=== PATIENT | female | born 1940 ===

== ENCOUNTER 2024-08-31 09:25 | Inpatient (IN) | payer OTHER ==
[2024-08-31] VITALS (7 sets, daily range): BP systolic 83–132; BP diastolic 59–90; O2SAT 97–100
[~2024-08-31] VITALS: Ht 160 cm; Wt 56.7 kg
[2024-08-31] MEDS ORDERED: PANTOPRAZOLE SO40 MG PO (10:16)
[2024-08-31] MEDS ORDERED: METOPROLOL SUCC50 MG PO (10:16)
[2024-08-31] MEDS ORDERED: ATORVASTATIN CA40 MG PO (10:16)
[2024-08-31] MEDS ORDERED: ELIQUIS2.5 MG PO (10:16)
[2024-08-31] MEDS ORDERED: FUROSEMIDE20 MG PO (10:16)
[2024-08-31] MEDS ORDERED: ST. JOSEPH ASPI81 M2 PO (10:16)
[2024-08-31 11:31] LABS: HEMATOCRIT 31.9 % (36.0-45.00); MEAN CELL VOLUME 86.2 fL (80.00-100.00); MEAN CORPUSCULAR HGB CONC 31.3 g/dl (32.0-36.0); PLATELET COUNT 333 K/uL (150-450)
[2024-08-31 11:36] LABS: RED CELL DISTRIBUTION WIDTH 17.3 % (11.5-14.5)
[2024-08-31 11:38] LABS: COVID-19 AG NEGATIVE (NEGATIVE); INFLUENZA A AG NEGATIVE (NEGATIVE); PH,URINE 5.5 (5.0-8.0); URINE APPEARANCE Clear; URINE BILIRRUBIN Negative (NEGATIVE); URINE BLOOD Moderate; URINE COLOR Yellow; URINE GLUCOSE Negative (NEGATIVE); URINE KETONE Negative (NEGATIVE); URINE LEUKOCYTE Trace; URINE NITRATE Negative; URINE PROTEIN 30 (NEGATIVE); URINE UROBILINOGEN 0.2 E.U./dl
--- NOTE | 2024-08-31 11:42 | NUR ---
SE RECIBE PACIENTE ALERTA Y ORIENTADA EN PERSONA Y LUGAR EN AMBULANCIA EN COPANIA DE HIJA QUIEN REFIERE PACIENTE PRESENTA DIFICULTAD RESPIRATORIA E HIPOTENSION. SE MIDEN S/V, SE REALIZA EKG EL CUAL ES PRESENTADO A DR PARK QUIEN REFIERE COLOCAR A PACIENTE EN UNIDAD DE CRITICO. SE CONECTA PACIENTE A MONITOR CARDIACO Y OXIMETRIA DE PUL[place]. SE COLOCA CANULA NASAL A 3 LT/MIN. SE NOTIFICAN ABGS. SE COLECTAN MUESTRAS DE LABORATORIO Y SE CANALIZA A PACIENTE BAJO MEDIDAS ASEPTICAS. SE ADMINISTRAN IVF'S CARA ORDEN MEDICA. SE NOTIFICA X-RAY. SE INSERTA SONDA URINARIA BAJO MEDIDAS ESTERILES, SE CORROBORA PATENTICIDAD Y SE COLOCA A GRAVEDAD. SE MANTIENE PACIENTE BAJO OBSERVACION POR CAMBIOS.
[2024-08-31 11:45] LABS: URINE CAST 3.68 uL (0.0-1.40); URINE EPITHELIAL CELLS 12.6 uL (0.0-38.8); URINE RBC 251.8 uL (0.0-20.8); URINE WBC 26.7 uL (0.0-23.2)
[2024-08-31 12:00] LABS: URINE BACTERIA 2.4 uL (0.0-1933); URINE CRYSTALS FEW /HPF
[2024-08-31] MEDS ORDERED: FUROsemide 40 MG/4 ML VIAL IV ONE (12:00)
[2024-08-31] MEDS ORDERED: NOREPINEPHRINE BITARTRATE 1 MG/ML AMPUL IV ONE (12:04)
[2024-08-31 12:06] LABS: ABG PH 7.395 (7.35-7.45); ABG PO2 82.8 mmHg (80-100); ABG pCO2 47.2 mmHg (35-45); BASE EXCESS 2.6 mmol/l; BICARBONATE 28.3 mmol/l (23-25); SaO2 96.1 %; Tco2 29.7 mmol/l
[2024-08-31] MEDS ORDERED: NOREPINEPHRINE BITARTRATE 4 MG in DEXTROSE 5 % IN WATER 250 ML IV SCH (12:15)
[2024-08-31] MEDS ORDERED: CEFTRIAXONE SODIUM 1,000 MG VIAL IV ONE (12:30)
[2024-08-31] MEDS ORDERED: CEFTRIAXONE SODIUM 1,000 MG VIAL ONE (12:38)
[2024-08-31] MEDS ORDERED: FUROsemide 40 MG/4 ML VIAL ONE (12:38)
[2024-08-31 12:46] LABS: INR 2.36; PARTIAL THROMBOPLASTIN TIME 36.2 SECONDS (22.0-34.0)
[2024-08-31 12:51] LABS: PROTHROMBIN TIME 24.1 SECONDS (9.0-11.5)
[2024-08-31 12:52] LABS: ALBUMIN 2.8 gm/dL (3.4-5.0); BILIRUBIN TOTAL 1.69 mg/dL (0.3-1.2); CALCIUM 9.2 mg/dL (8.5-10.1); CREATININE SERUM 1.81 mg/dL (0.55-1.02); GFR 26.57; GLOBULINA 3.9 G/DL (2.4-3.5); POTASSIUM 4.03 mEq/L (3.5-5.1); TOTAL PROTEIN 6.7 gm/dL (6.4-8.2)
[2024-08-31 13:05] LABS: allen test SATISFACTORY
[2024-08-31 13:06] LABS: mode NASAL CANNULA; o2 32 %; puncture site RADIAL LEFT
[2024-08-31] MEDS ORDERED: CEFTRIAXONE SODIUM 2,000 MG in DEXTROSE 5 % IN WATER 100 ML IV SCH (13:19)
[2024-08-31] MEDS ORDERED: DEXTROSE 5 % IN WATER 1,000 ML IV SCH (13:30)
[2024-08-31 13:59] LABS: C-REACTIVE PROTEIN 6.7 MG/DL (0.00-0.29); CHOL HDL RATIO 2.6 (0-5.0)
[2024-08-31] MEDS ORDERED: DEXTROSE 50 % IN WATER 0.5 G/ML VIAL IV ONE (16:04)
[2024-08-31] MEDS ORDERED: DEXTROSE 50 % IN WATER 0.5 G/ML VIAL IV STA (16:28)
[2024-08-31] MEDS ORDERED: FUROsemide 40 MG/4 ML VIAL IV SCH (17:00)
[2024-08-31] MEDS ORDERED: AMINO ACIDS 4.25 %/DEXTROSE 5% 1,000 ML PERIFERAL SCH (17:00)
[2024-08-31] MEDS ORDERED: ENOXAPARIN SODIUM 60 MG/0.6 ML SYRINGE SUBCUTANEO SCH ×2 (21:00)
[2024-08-31] MEDS ORDERED: PANTOPRAZOLE SODIUM 40 MG/VIAL VIAL IV SCH (21:00)
[2024-08-31] MEDS ORDERED: MEROPENEM 500 MG/VIAL VIAL IV SCH (21:19)
[2024-08-31] MEDS ORDERED: ATROPINE SULFATE 0.1 MG/ML DISP.SYRIN IV PRN (22:45)
[2024-09-01] VITALS (22 sets, daily range): BP systolic 88–138; BP diastolic 45–81; O2SAT 91–100
[2024-09-01] MEDS ORDERED: DOPamine HCL 400MG/D5w 250ML PLAST..BAG IV ONE (00:46)
[2024-09-01] MEDS ORDERED: DOPamine HCL IN DEXTROSE 5 % 250 ML IV SCH (01:15)
[2024-09-01 06:19] LABS: HEMATOCRIT 31.3 % (36.0-45.00); HEMOGLOBIN 9.7 g/dL (12.0-15.00); MEAN CELL VOLUME 86.6 fL (80.00-100.00); MEAN CORPUSCULAR HGB CONC 31.2 g/dl (32.0-36.0); PLATELET COUNT 366 K/uL (150-450); RED BLOOD COUNT 3.61 M/uL (4.00-6.00)
[2024-09-01 07:36] LABS: CHOL HDL RATIO 2.4 (0-5.0)
[2024-09-01 07:40] LABS: ALBUMIN 2.3 gm/dL (3.4-5.0); BILIRUBIN TOTAL 0.77 mg/dL (0.3-1.2); CALCIUM 8.5 mg/dL (8.5-10.1); CREATININE SERUM 1.85 mg/dL (0.55-1.02); GFR 25.91; PHOSPHOROUS 4.2 mg/dL (2.5-4.9); POTASSIUM 3.67 mEq/L (3.5-5.1); TOTAL PROTEIN 5.3 gm/dL (6.4-8.2)
[2024-09-01 07:58] LABS: MAGNESIUM 1.3 mg/dL (1.8-2.4)
[2024-09-01] MEDS ORDERED: 0.9 % SODIUM CHLORIDE 1,000 ML IV SCH (09:00)
[2024-09-01] MEDS ORDERED: MAGNESIUM SULFATE IN WATER 4 GM/100 ML PIGGYBACK IV NR (09:30)
[2024-09-01] MEDS ORDERED: CHLORHEXIDINE GLUCONATE 120 ML BOTTLE TOP ONE (10:46)
[2024-09-01 13:08] LABS: BASE EXCESS 1.4 mmol/l; BICARBONATE 34.1 mmol/l (23-25); SaO2 99.3 %; Tco2 37.2 mmol/l
[2024-09-01 13:56] LABS: INR 1.78; PARTIAL THROMBOPLASTIN TIME 30.8 SECONDS (22.0-34.0)
[2024-09-01 13:58] LABS: PROTHROMBIN TIME 18.6 SECONDS (9.0-11.5)
[2024-09-01 14:43] LABS: ABG PO2 202.9 mmHg (80-100)
[2024-09-01 14:44] LABS: ABG PH 7.142 (7.35-7.45); allen test SATISFACTORY; mode NON REBREATHING MASK; o2 100 %; puncture site RADIAL RIGHT
[2024-09-01 17:30] LABS: ABG PH 7.264 (7.35-7.45); ABG PO2 133.6 mmHg (80-100); BASE EXCESS 2.5 mmol/l; BICARBONATE 31.9 mmol/l (23-25); SaO2 98.5 %; Tco2 34.1 mmol/l
[2024-09-01 17:32] LABS: ABG pCO2 71.9 mmHg (35-45)
[2024-09-01 17:33] LABS: allen test NO SATISFACTORY; mode BPAP; o2 60 %; puncture site RADIAL RIGHT
[2024-09-01 19:30] LABS: ABG PH 7.226 (7.35-7.45); ABG PO2 115.6 mmHg (80-100); BASE EXCESS 2.1 mmol/l; BICARBONATE 32.6 mmol/l (23-25); SaO2 97.4 %
[2024-09-01 19:34] LABS: ABG pCO2 80.2 mmHg (35-45); allen test NO SATISFACTORY; mode BPAP; o2 50 %; puncture site RADIAL RIGHT
[2024-09-01] MEDS ORDERED: FUROsemide 40 MG/4 ML VIAL IV SCH (21:00)
[2024-09-02] VITALS (22 sets, daily range): BP systolic 80–115; BP diastolic 43–63; O2SAT 94–100
[2024-09-02 07:23] LABS: MEAN CELL VOLUME 87.2 fL (80.00-100.00); MEAN CORPUSCULAR HGB CONC 31.7 g/dl (32.0-36.0); PLATELET COUNT 306 K/uL (150-450); RED BLOOD COUNT 3.32 M/uL (4.00-6.00); RED CELL DISTRIBUTION WIDTH 17.4 % (11.5-14.5)
[2024-09-02 07:32] LABS: HEMOGLOBIN 9.2 g/dL (12.0-15.00); MEAN CORPUSCULAR HEMOGLOBIN 27.7 pg (27.00-32.0)
[2024-09-02 08:00] LABS: BILIRUBIN TOTAL 0.67 mg/dL (0.3-1.2); CALCIUM 8.1 mg/dL (8.5-10.1); CREATININE SERUM 1.95 mg/dL (0.55-1.02); GFR 24.38; GLOBULINA 2.8 G/DL (2.4-3.5); MAGNESIUM 2.1 mg/dL (1.8-2.4); PHOSPHOROUS 4.1 mg/dL (2.5-4.9); POTASSIUM 3.76 mEq/L (3.5-5.1); TOTAL PROTEIN 4.8 gm/dL (6.4-8.2)
[2024-09-02 08:01] LABS: ABG PO2 153.8 mmHg (80-100); BASE EXCESS 3.9 mmol/l; BICARBONATE 34.3 mmol/l (23-25); SaO2 98.9 %; Tco2 36.9 mmol/l
[2024-09-02 08:25] LABS: ABG pCO2 81.9 mmHg (35-45); o2 50 %
[2024-09-02 08:26] LABS: allen test SATISFACTORY; mode BPAP; puncture site RADIAL RIGHT
[2024-09-02] MEDS ORDERED: PHENOL 177 ML BOTTLE MM PRN (14:45)
[2024-09-03] VITALS (21 sets, daily range): BP systolic 90–118; BP diastolic 42–74; O2SAT 95–100
[2024-09-03 08:59] LABS: ABG PH 7.356 (7.35-7.45); ABG PO2 193.3 mmHg (80-100); BASE EXCESS 8.3 mmol/l; BICARBONATE 36.5 mmol/l (23-25); SaO2 99.6 %; Tco2 38.6 mmol/l
[2024-09-03 11:02] LABS: ABG pCO2 66.8 mmHg (35-45); allen test SATISFACTORY; mode BPAP; o2 50 %; puncture site RADIAL RIGHT
[2024-09-04] VITALS (24 sets, daily range): BP systolic 87–124; BP diastolic 44–83; O2SAT 97–100
[2024-09-04 07:09] LABS: HEMATOCRIT 26.8 % (36.0-45.00); HEMOGLOBIN 8.6 g/dL (12.0-15.00); MEAN CELL VOLUME 84.3 fL (80.00-100.00); MEAN CORPUSCULAR HGB CONC 32.1 g/dl (32.0-36.0); PLATELET COUNT 271 K/uL (150-450); RED BLOOD COUNT 3.18 M/uL (4.00-6.00); RED CELL DISTRIBUTION WIDTH 16.6 % (11.5-14.5)
[2024-09-04 07:56] LABS: INR 1.31
[2024-09-04 07:59] LABS: PARTIAL THROMBOPLASTIN TIME 41.6 SECONDS (22.0-34.0)
[2024-09-04 08:02] LABS: ALBUMIN 2.1 gm/dL (3.4-5.0); BILIRUBIN TOTAL 1.15 mg/dL (0.3-1.2); CALCIUM 8.3 mg/dL (8.5-10.1); CHOL HDL RATIO 2.9 (0-5.0); CREATININE SERUM 1.58 mg/dL (0.55-1.02); GFR 31.08; GLOBULINA 2.5 G/DL (2.4-3.5); TOTAL PROTEIN 4.6 gm/dL (6.4-8.2)
[2024-09-04 08:37] LABS: POTASSIUM 2.78 mEq/L (3.5-5.1)
[2024-09-04 10:51] LABS: UREA CLEARANCE 10.4 ML/MIN
[2024-09-04] MEDS ORDERED: POTASSIUM CHLORIDE IN WATER 40 MEQ/100 ML PIGGYBAG IV SCH (12:00)
[2024-09-04] MEDS ORDERED: ACETAZOLAMIDE SODIUM 500 MG VIAL IV NR (12:00)
[2024-09-04 12:04] LABS: ABG PH 7.413 (7.35-7.45); ABG PO2 161.9 mmHg (80-100); BICARBONATE 39.6 mmol/l (23-25); SaO2 99.5 %; Tco2 41.6 mmol/l
[2024-09-04 16:07] LABS: ABG pCO2 63.5 mmHg (35-45); allen test SATISFACTORY; o2 50 %; puncture site RADIAL RIGHT
[2024-09-04 16:08] LABS: mode BPAP
[2024-09-04] MEDS ORDERED: POTASSIUM BICARBONATE/CIT AC 25 MEQ TABLET.EFF PO NR (18:15)
[2024-09-04] MEDS ORDERED: FUROsemide 20 MG/2 ML VIAL IV SCH (21:00)
[2024-09-05] VITALS (22 sets, daily range): BP systolic 86–133; BP diastolic 45–70; O2SAT 95–100
[2024-09-05 06:20] LABS: HEMATOCRIT 27.6 % (36.0-45.00); MEAN CORPUSCULAR HGB CONC 32.2 g/dl (32.0-36.0); PLATELET COUNT 273 K/uL (150-450); RED BLOOD COUNT 3.25 M/uL (4.00-6.00); RED CELL DISTRIBUTION WIDTH 16.9 % (11.5-14.5)
[2024-09-05 06:25] LABS: HEMOGLOBIN 8.9 g/dL (12.0-15.00); MEAN CORPUSCULAR HEMOGLOBIN 27.3 pg (27.00-32.0)
[2024-09-05 06:53] LABS: ALBUMIN 2.1 gm/dL (3.4-5.0); BILIRUBIN TOTAL 1.33 mg/dL (0.3-1.2); CALCIUM 8.5 mg/dL (8.5-10.1); CREATININE SERUM 1.49 mg/dL (0.55-1.02); GFR 33.26; GLOBULINA 2.7 G/DL (2.4-3.5); POTASSIUM 4.4 mEq/L (3.5-5.1); TOTAL PROTEIN 4.8 gm/dL (6.4-8.2)
[2024-09-05 07:22] LABS: MAGNESIUM 1.4 mg/dL (1.8-2.4); PHOSPHOROUS 1.5 mg/dL (2.5-4.9)
[2024-09-05] MEDS ORDERED: PANTOPRAZOLE SODIUM 40 MG/VIAL VIAL IV SCH (09:00)
[2024-09-05] MEDS ORDERED: MAGNESIUM SULFATE IN WATER 50 ML IV STA (10:26)
[2024-09-05] MEDS ORDERED: IRON/V.C/V.B12/FOLIC A/VIT. E 1 CAPL CAPLET PO SCH (10:30)
[2024-09-05] MEDS ORDERED: POTASSIUM PHOS,M-BASIC-D-BASIC 3 MM/ML VIAL IV ONE (11:00)
[2024-09-05] MEDS ORDERED: AMINO ACIDS/PROTEIN HYDROLYS 30 ML BLIST.PACK PO SCH (13:00)
[2024-09-05] MEDS ORDERED: MAGNESIUM HYDROXIDE 30 ML BLIST.PACK PO NR (14:00)
[2024-09-05] MEDS ORDERED: MINERAL OIL 30 ML BLIST.PACK PO NR (14:00)
[2024-09-05] MEDS ORDERED: LACTULOSE 20 G/30 ML BLIST.PACK PO NR (14:00)
[2024-09-05] MEDS ORDERED: POTASSIUM PHOS,M-BASIC-D-BASIC 15 MM in 0.9 % SODIUM CHLORIDE 250 ML IV NR (16:45)
[2024-09-05] MEDS ORDERED: SOD FERRIC GLUC COMPLX/SUCROSE 62.5 MG/5 ML AMPUL IV SCH ×2 (17:00)
[2024-09-05] MEDS ORDERED: ACETAZOLAMIDE SODIUM 500 MG VIAL IV NR (17:30)
[2024-09-06] VITALS (7 sets, daily range): BP systolic 93–116; BP diastolic 46–63; O2SAT 96–100
[2024-09-06] MEDS ORDERED: CEFTRIAXONE SODIUM 2,000 MG in 0.9 % SODIUM CHLORIDE 100 ML IV SCH (09:00)
[2024-09-06] MEDS ORDERED: MIDODRINE HCL 5 MG TABLET PO SCH (09:00)
[2024-09-06] MEDS ORDERED: RINGERS SOLUTION,LACTATED 250 ML IV STA (14:32)
[2024-09-07 04:02] VITALS: BP 92/46; O2SAT 100
[2024-09-07 06:46] LABS: MEAN CELL VOLUME 84.2 fL (80.00-100.00); MEAN CORPUSCULAR HGB CONC 32.8 g/dl (32.0-36.0); PLATELET COUNT 217 K/uL (150-450); RED BLOOD COUNT 2.66 M/uL (4.00-6.00); RED CELL DISTRIBUTION WIDTH 17.5 % (11.5-14.5)
[2024-09-07 06:59] LABS: HEMATOCRIT 22.4 % (36.0-45.00); MEAN CORPUSCULAR HEMOGLOBIN 27.8 pg (27.00-32.0)
[2024-09-07 07:00] VITALS: BP 97/56; O2SAT 100
[2024-09-07 07:00] LABS: HEMOGLOBIN 7.4 g/dL (12.0-15.00)
[2024-09-07 07:20] LABS: ALBUMIN 1.9 gm/dL (3.4-5.0); BILIRUBIN TOTAL 0.82 mg/dL (0.3-1.2); CALCIUM 8.3 mg/dL (8.5-10.1); CREATININE SERUM 0.99 mg/dL (0.55-1.02); GFR 53.31; GLOBULINA 2.4 G/DL (2.4-3.5); MAGNESIUM 1.5 mg/dL (1.8-2.4); PHOSPHOROUS 2.7 mg/dL (2.5-4.9); POTASSIUM 3.52 mEq/L (3.5-5.1); TOTAL PROTEIN 4.3 gm/dL (6.4-8.2)
[2024-09-07] MEDS ORDERED: FUROsemide 20 MG/2 ML VIAL IV SCH ×2 (08:30→09:00)
[2024-09-07] MEDS ORDERED: MIDODRINE HCL 5 MG TABLET PO SCH (09:00)
[2024-09-07 09:04] LABS: ABG PH 7.427 (7.35-7.45); ABG pCO2 56.8 mmHg (35-45); BASE EXCESS 9.9 mmol/l; BICARBONATE 36.6 mmol/l (23-25); SaO2 99.6 %; Tco2 38.3 mmol/l
[2024-09-07 12:00] VITALS: BP 113/59; O2SAT 100
[2024-09-07 12:53] LABS: allen test SATISFACTORY; mode NASAL CANNULA; o2 36 %; puncture site RADIAL RIGHT
[2024-09-07] MEDS ORDERED: MAGNESIUM SULFATE IN WATER 2 GM/50 ML PIGGYBAG IV NR (13:15)
[2024-09-07 15:44] VITALS: BP 122/65; O2SAT 100
[2024-09-07] MEDS ORDERED: AMINO ACIDS/PROTEIN HYDROLYS 30 ML BLIST.PACK PO SCH (17:00)
[2024-09-07 20:00] VITALS: BP 97/52; O2SAT 100
[2024-09-07 23:28] VITALS: BP 111/47; O2SAT 100
[2024-09-08 03:57] VITALS: BP 117/51; O2SAT 100
[2024-09-08 06:09] VITALS: BP 125/65; O2SAT 100
[2024-09-08 07:28] VITALS: BP 107/54; O2SAT 100
[2024-09-08 12:00] VITALS: BP 100/61; O2SAT 100
[2024-09-08] MEDS ORDERED: ONDANSETRON HCL 2 MG/ML VIAL IV PRN (12:00)
[2024-09-08 15:28] VITALS: BP 125/97; O2SAT 98
[2024-09-08] MEDS ORDERED: AMINO ACIDS 4.25 %/DEXTROSE 5% 1,000 ML PERIFERAL SCH (17:00)
[2024-09-08 17:50] LABS: HEMATOCRIT 35.3 % (36.0-45.00); HEMOGLOBIN 11.3 g/dL (12.0-15.00); MEAN CELL VOLUME 85.1 fL (80.00-100.00); MEAN CORPUSCULAR HEMOGLOBIN 27.4 pg (27.00-32.0); MEAN CORPUSCULAR HGB CONC 32.2 g/dl (32.0-36.0); PLATELET COUNT 309 K/uL (150-450); RED BLOOD COUNT 4.14 M/uL (4.00-6.00); RED CELL DISTRIBUTION WIDTH 16.8 % (11.5-14.5)
[2024-09-08 18:18] LABS: ALBUMIN 2.3 gm/dL (3.4-5.0); BILIRUBIN TOTAL 1.91 mg/dL (0.3-1.2); CALCIUM 9.3 mg/dL (8.5-10.1); CREATININE SERUM 0.98 mg/dL (0.55-1.02); GFR 53.94; GLOBULINA 2.9 G/DL (2.4-3.5); MAGNESIUM 2.2 mg/dL (1.8-2.4); PHOSPHOROUS 2.8 mg/dL (2.5-4.9); POTASSIUM 3.59 mEq/L (3.5-5.1); TOTAL PROTEIN 5.2 gm/dL (6.4-8.2)
[2024-09-08 20:00] VITALS: BP 113/62; O2SAT 98
[2024-09-09 01:35] VITALS: O2SAT 97
[2024-09-09 03:16] VITALS: BP 119/66; O2SAT 99
[2024-09-09] MEDS ORDERED: PANTOPRAZOLE SODIUM 40 MG TABLET.DR PO SCH (09:00)
[2024-09-09 09:37] LABS: HEMATOCRIT 31.1 % (36.0-45.00); HEMOGLOBIN 10.4 g/dL (12.0-15.00); MEAN CELL VOLUME 93.7 fL (80.00-100.00); MEAN CORPUSCULAR HEMOGLOBIN 31.3 pg (27.00-32.0); MEAN CORPUSCULAR HGB CONC 33.4 g/dl (32.0-36.0); PLATELET COUNT 279 K/uL (150-450); RED BLOOD COUNT 3.32 M/uL (4.00-6.00); RED CELL DISTRIBUTION WIDTH 20.1 % (11.5-14.5)
[2024-09-09 09:59] VITALS: O2SAT 96
[2024-09-09 10:33] LABS: ALBUMIN 1.9 gm/dL (3.4-5.0); BILIRUBIN TOTAL 0.85 mg/dL (0.3-1.2); CALCIUM 7.9 mg/dL (8.5-10.1); CREATININE SERUM 0.34 mg/dL (0.55-1.02); GFR 182.99; GLOBULINA 2.6 G/DL (2.4-3.5); MAGNESIUM 2.2 mg/dL (1.8-2.4); PHOSPHOROUS 3.1 mg/dL (2.5-4.9); POTASSIUM 4.9 mEq/L (3.5-5.1); TOTAL PROTEIN 4.5 gm/dL (6.4-8.2)
[2024-09-09 17:50] VITALS: O2SAT 90
[2024-09-09 19:15] VITALS: BP 132/75
[2024-09-09 20:46] VITALS: O2SAT 86
[2024-09-10 00:54] VITALS: O2SAT 96
[2024-09-10 02:13] VITALS: BP 130/76; O2SAT 96
[2024-09-10 06:01] VITALS: O2SAT 92
[2024-09-10 09:19] VITALS: BP 131/71
[2024-09-10 17:30] VITALS: BP 122/68
[2024-09-10] MEDS ORDERED: FUROsemide 20 MG TABLET PO SCH (18:14)
[2024-09-10 19:05] VITALS: O2SAT 90
[2024-09-11 01:05] VITALS: BP 137/80; O2SAT 98
[2024-09-11 06:20] LABS: HEMATOCRIT 33.3 % (36.0-45.00); HEMOGLOBIN 10.7 g/dL (12.0-15.00); MEAN CELL VOLUME 85.9 fL (80.00-100.00); MEAN CORPUSCULAR HEMOGLOBIN 27.6 pg (27.00-32.0); MEAN CORPUSCULAR HGB CONC 32.2 g/dl (32.0-36.0); PLATELET COUNT 318 K/uL (150-450); RED BLOOD COUNT 3.87 M/uL (4.00-6.00); RED CELL DISTRIBUTION WIDTH 17.2 % (11.5-14.5)
[2024-09-11 07:22] LABS: ALBUMIN 2.3 gm/dL (3.4-5.0); BILIRUBIN TOTAL 0.95 mg/dL (0.3-1.2); CREATININE SERUM 0.98 mg/dL (0.55-1.02); GFR 53.94; MAGNESIUM 1.8 mg/dL (1.8-2.4); PHOSPHOROUS 2.2 mg/dL (2.5-4.9); POTASSIUM 3.69 mEq/L (3.5-5.1); TOTAL PROTEIN 5.3 gm/dL (6.4-8.2)
[2024-09-11 09:19] VITALS: BP 121/73
[2024-09-11 09:39] VITALS: O2SAT 89
[2024-09-11 14:23] LABS: ABG PH 7.376 (7.35-7.45); ABG PO2 94.2 mmHg (80-100); BASE EXCESS 7.1 mmol/l; BICARBONATE 34.5 mmol/l (23-25); SaO2 97.2 %; Tco2 36.3 mmol/l
[2024-09-11 15:08] LABS: ABG pCO2 60.3 mmHg (35-45)
[2024-09-11 15:09] LABS: allen test SATISFACTORY; mode NASAL CANNULA; o2 52 %; puncture site RADIAL LEFT
[2024-09-11 16:50] LABS: ABG pCO2 49.6 mmHg (35-45); BASE EXCESS 6.5 mmol/l; BICARBONATE 32.2 mmol/l (23-25); SaO2 81.9 %; Tco2 33.7 mmol/l
[2024-09-11 16:53] VITALS: O2SAT 90
[2024-09-11] MEDS ORDERED: MIDODRINE HCL 5 MG TABLET PO SCH (17:00)
[2024-09-11 18:39] VITALS: BP 137/68
[2024-09-11] MEDS ORDERED: POTASSIUM PHOS,M-BASIC-D-BASIC 15 MM in 0.9 % SODIUM CHLORIDE 250 ML IV NR (19:00)
[2024-09-11 19:38] VITALS: O2SAT 90
[2024-09-11 19:45] LABS: ABG PO2 43.9 mmHg (80-100); allen test SATISFACTORY; mode ROOM AIR; o2 21 %; puncture site RADIAL LEFT
[2024-09-12] VITALS (8 sets, daily range): BP systolic 125–144; BP diastolic 78–86; O2SAT 90–100
[2024-09-12 08:46] LABS: ABG PH 7.446 (7.35-7.45); BASE EXCESS 6.4 mmol/l; BICARBONATE 31.6 mmol/l (23-25); SaO2 86.3 %
[2024-09-12 08:56] LABS: ABG PO2 48.3 mmHg (80-100); allen test SATISFACTORY; mode ROOM AIR; puncture site RADIAL RIGHT
[2024-09-12 08:57] LABS: o2 21 %
[2024-09-13] VITALS (9 sets, daily range): BP systolic 130–136; BP diastolic 84–92; O2SAT 89–100
[2024-09-14 02:16] VITALS: BP 131/72; O2SAT 98
[2024-09-14 03:01] VITALS: O2SAT 100
[2024-09-14] MEDS ORDERED: TOPROL XL25 M1 PO (12:47)
[2024-09-14] MEDS ORDERED: ELIQUIS2.5 MG PO (12:47)
[2024-09-14] MEDS ORDERED: PANTOPRAZOLE SO40 MG PO (12:48)
[2024-09-14] MEDS ORDERED: PROTEINEX-18 LI30 ML PO (12:48)
[2024-09-14] MEDS ORDERED: FUROSEMIDE20 MG PO (12:48)
[2024-09-14] MEDS ORDERED: INTEGRA PLUS C1 EACH PO (12:49)
[2024-09-14 14:09] VITALS: O2SAT 96
== END 2024-09-14 15:23 | disposition home or self-care (01) | DRG 853 ==
LOC: ER 09:25 → ICU 13:42 → MEDJ 09-08 20:48
PROVIDERS: Emergency Medicine; ADMIT Internal Medicine; ATTEND Internal Medicine
PROC: 4A12X4Z Monitoring of Cardiac Electrical Activity, External Approach (ICD-10-PCS; 2024-08-31)
PROC: B246ZZZ Ultrasonography of Right and Left Heart (ICD-10-PCS; 2024-08-31)
PROC: BB24ZZZ Computerized Tomography (CT Scan) of Bilateral Lungs (ICD-10-PCS; 2024-08-31)
PROC: BW21ZZZ Computerized Tomography (CT Scan) of Abdomen and Pelvis (ICD-10-PCS; 2024-08-31)
PROC: B020ZZZ Computerized Tomography (CT Scan) of Brain (ICD-10-PCS; 2024-08-31)
PROC: 02HV33Z Insertion of Infusion Device into Superior Vena Cava, Percutaneous Approach (ICD-10-PCS; 2024-09-01)
PROC: 5A09457 Assistance with Respiratory Ventilation, 24-96 Consecutive Hours, Continuous Positive Airway Pressure (ICD-10-PCS; 2024-09-01)
PROC: BW40ZZZ Ultrasonography of Abdomen (ICD-10-PCS; 2024-09-02)
PROC: 0JBQ0ZZ Excision of Right Foot Subcutaneous Tissue and Fascia, Open Approach (ICD-10-PCS; principal; 2024-09-07)
PROC: B44HZZZ Ultrasonography of Bilateral Lower Extremity Arteries (ICD-10-PCS; 2024-09-07)
PROC: B54DZZZ Ultrasonography of Bilateral Lower Extremity Veins (ICD-10-PCS; 2024-09-07)
PROC: 30233N1 Transfusion of Nonautologous Red Blood Cells into Peripheral Vein, Percutaneous Approach (ICD-10-PCS; 2024-09-07)
PROC: 0JBQ0ZZ Excision of Right Foot Subcutaneous Tissue and Fascia, Open Approach (ICD-10-PCS; 2024-09-14)
DX: A41.9 Sepsis, unspecified organism (principal); G92.8 Other toxic encephalopathy; R65.21 Severe sepsis with septic shock; J18.9 Pneumonia, unspecified organism; J96.02 Acute respiratory failure with hypercapnia; I21.A1 Myocardial infarction type 2; N17.9 Acute kidney failure, unspecified; L97.418 Non-pressure chronic ulcer of right heel and midfoot with other specified severity; I48.20 Chronic atrial fibrillation, unspecified; J91.8 Pleural effusion in other conditions classified elsewhere; I13.0 Hypertensive heart and chronic kidney disease with heart failure and stage 1 through stage 4 chronic kidney disease, or unspecified chronic kidney disease; I50.813 Acute on chronic right heart failure; E83.42 Hypomagnesemia; E83.39 Other disorders of phosphorus metabolism; S30.1XXA Contusion of abdominal wall, initial encounter; M62.50 Muscle wasting and atrophy, not elsewhere classified, unspecified site; D64.89 Other specified anemias; N18.30 Chronic kidney disease, stage 3 unspecified; E78.5 Hyperlipidemia, unspecified; Z79.01 Long term (current) use of anticoagulants; Z66 Do not resuscitate; Z74.01 Bed confinement status